=== PATIENT | male | born 1970 | race Caucasian/White ===

== ENCOUNTER 2024-06-06 19:29 | Emergency (ER) | payer SELFPAY ==
[2024-06-06 19:31] VITALS: BP 156/90
[2024-06-06] MEDS: ADACEL 0.5 ML IM (20:22)
--- NOTE | 2024-06-06 20:23 | ED.GENMED ---
History of Present Illness
General
Chief Complaint: Skin Surface Trauma
Source: patient
Time Seen by Provider: 06/06/24 20:09
History of Present Illness
History of Present Illness:
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 His tetanus is not up-to-date. He denies any other complaints. He denies numbness or tingling.
Past History
Past History
ED Past Medical History: None
Social History
Tobacco: Non-smoker
Alcohol: Occasional
Drug: None
Living: with family
Employment: Employed
Phy Exam
Physical Exam
Physical Exam:
GENERAL: Alert , in no apparent distress
EYE: pupils equal and reactive
NECK: Supple, no significant adenopathy.
ENT: o/p clr, mmm.
CARDIAC: Regular rate and rhythm .
LUNGS: Clear breath sounds bilaterally, no acute respiratory distress, no wheezes/rales/rhonchi
ABDOMEN: Soft, without focal tenderness, no r/g, no cvat
NEUROLOGICAL: Alert and oriented, no focal neuro deficits
SKIN: Warm and dry, small avulsion tip of R thumb, no involvement of nail, no tendon/bony involvement, FROM, sens intacdt. Sl ooze noted at site.
MUSCULOSKELETAL: No edema, well perfused.
PSYCH: Normal and appropriate interaction.
Course
Orders/Labs/Results
Orders:
Orders
06/06/24 20:18
Tetanus/Diphth/Acelpertussis [Adacel] 0.5 ml IM .ONCE ONE
Vital Signs
Initial and Last Documented VS:
Initial Vital Signs
Temp Pulse Resp BP Pulse Ox
97.7 F 80 18 156/90 99
06/06/24 19:31 06/06/24 19:31 06/06/24 19:31 06/06/24 19:31 06/06/24 19:31
Last Documented Vital Signs
Temp Pulse Resp BP Pulse Ox
97.7 F 80 18 156/90 99
06/06/24 19:31 06/06/24 19:31 06/06/24 19:31 06/06/24 19:31 06/06/24 19:31
*Critical Care Note
Total Time (30-74mins, 75-104mins- exclusive of procedures): Not Applicable
Update Note
Update Note:
Patient presents to the Emergency Department with cut finger with a meat slicer
Number and Complexity of Problems Addressed at the Encounter
� Chronic conditions affecting care:
� Acute Exacerbation and/or Progression of Chronic Illness:
� Differential Diagnosis includes: But not limited to avulsion, laceration, nailbed injury, etc. etc.
Amount and/or Complexity of Data to be Reviewed and Analyzed
� I performed an independent evaluation of and my interpretation is:
EKG:
CT:
Xrays:
Laboratory Studies:
Other:
� Review of other/old records reveals:
� Clinical information was obtained by an independent historian: Coworker who is bedside
� Prescriptions/Medications Considered but not given:
� Further testing considered but not performed:
Risk of Complications and/or Morbidity or Mortality of Patient Management
� Social determinants of health affecting care:
� Discussion with other providers (PCP, Hospitalists, Consultants, etc):
� Escalation of care including admission/observation vs risk of discharge considered: Patient's tetanus will be updated. Here, I remove the dressing, irrigated area with saline, and applied Gelfoam to control the bleeding. RN
will wrap thumb, and close discharge instructions discussed with patient
ED Attending Note
-
Portions of this chart may have been created with voice recognition software.� Occasional wrong word or��sound alike� substitutions may have occurred due to the inherent limitations of voice recognition software.
Discharge Plan
Departure
Patient Disposition: Home (Routine Discharge)
Date of Disposition: 06/06/24
Time of Disposition: :
Patient with high blood pressure during this ER visit?: Yes
Condition: Good
Discharge Problem:
Avulsion
Instructions: Wound care - ED discharge instructions, BLOOD PRESSURE
Activity Restrictions/Additional Instructions:
PLEASE KEEP THE WOUND CLEAN AND DRY. IF YOU NOTICE FEVER, REDNESS, WARMTH, DRAINAGE, OR OTHER WORRISOME SIGNS, GO TO THE ER IMMEDIATELY.
Interventions
Interventions:
*Risk Screen - Suicide Last Done: 06/06/24 20:33
*General Assessment Last Done: 06/06/24 20:33
*Neglect/Abuse Screening Last Done: 06/06/24 20:33
ED- Fall Risk Assessment Last Done: 06/06/24 20:33
*ED COVID-19 Vaccine History Last Done: 06/06/24 20:33
*Nursing Disposition Last Done: 06/06/24 20:33
ED-Skin Assessment Last Done: 06/06/24 20:11
Discharge Date and Time
Discharge Date/Time: 06/06/24 20:37
Print Language: [id number]
== END 2024-06-06 20:37 | disposition home or self-care (01) ==
LOC: EMR 19:29
PROVIDERS: EMERGENCY PHYSICIAN Emergency Medicine
DX: S61.001A Unspecified open wound of right thumb without damage to nail, initial encounter (principal); W31.82XA Contact with other commercial machinery, initial encounter; Z23 Encounter for immunization; Y99.0 Civilian activity done for income or pay
CPT/HCPCS: 99282; 90471; 90715

== ENCOUNTER → 2025-01-23 11:22 | Outpatient (REF) | payer BC, SELFPAY | LOC: RAD 11:22 | PROVIDERS: ATTENDING PHYSICIAN Nurse Practitioner Family | DX: R59.0 Localized enlarged lymph nodes (principal) | CPT/HCPCS: 71046 ==

== ENCOUNTER → 2025-02-06 11:20 | Outpatient (REF) | payer BC, SELFPAY | LOC: RAD 11:20 | PROVIDERS: ATTENDING PHYSICIAN Nurse Practitioner Family | DX: R59.0 Localized enlarged lymph nodes (principal) | CPT/HCPCS: 70491; Q9967 ==